=== PATIENT | male | born 1955 | race American Indian/Alaskan Native ===

== ENCOUNTER 2020-08-07 13:31 | Emergency (ER) | payer OTHER, MEDICARE ==
[~2020-08-07] VITALS: Ht 172.7 cm; Wt 72.6 kg
[~2020-08-07 13:31] MED LIST: ATOR20 PO; Adult Low Dose81 MG PO; BUPR100 PO; BUPR100ER PO; CEPH500 PO; CHOL10002 PO; CYCL10 PO; HYDACE10B PO; METO25 PO; MIRT15 PO; MULVITMIND PO; OMEP20ER PO; TOLT4 PO; TOLTERODINE TART1 MG PO
[2020-08-07] MEDS ORDERED: Prinivil10 MG (13:44)
== END 2020-08-07 14:41 | disposition home or self-care (01) ==
LOC: ER 13:31
DX: S61.215A Laceration without foreign body of left ring finger without damage to nail, initial encounter (principal); I10 Essential (primary) hypertension; Z79.899 Other long term (current) drug therapy; Z88.1 Allergy status to other antibiotic agents; Z79.82 Long term (current) use of aspirin; Z23 Encounter for immunization; W25.XXXA Contact with sharp glass, initial encounter
CPT/HCPCS: 12001; 73140; 90471; 90714; 99282-25

== ENCOUNTER 2020-08-14 18:44 | Emergency (ER) | payer OTHER, MEDICARE ==
[~2020-08-14] VITALS: Ht 172.7 cm; Wt 81.7 kg
[~2020-08-14 18:44] MED LIST changes: +Prinivil10 MG
== END 2020-08-14 19:10 | disposition home or self-care (01) ==
LOC: ER 18:44
DX: S61.215D Laceration without foreign body of left ring finger without damage to nail, subsequent encounter (principal); I10 Essential (primary) hypertension; Z79.82 Long term (current) use of aspirin; Z79.899 Other long term (current) drug therapy; X58.XXXD Exposure to other specified factors, subsequent encounter